=== PATIENT | male | born 1970 | race Two or more races ===

== ENCOUNTER → 2016-12-01 | Day surgery (SDC) | payer BC ==
[~2016-12-01] MED LIST: PROPOFOL 500 MG/50 ML BTL IV ONE; SUCR1S PO; VITA100T65 PO
--- NOTE | 2016-12-01 11:52 | GIPROC ---
[facility] [address] [facility], [address] COLONOSCOPY PROCEDURE REPORT EXAM DATE: 12/01/2016 PATIENT NAME: John Wynne MR #: [id number] BIRTHDATE: 1970 ENDOSCOPIST: Corby Nixon MD ORDER #: [id number] LEATHER CUTTER: Hieu Gaines RN STATUS: outpatient INDICATIONS: The patient is a 46 yr old male here for a colonoscopy due to abdominal pain and hematochezia PROCEDURE PERFORMED: Colonoscopy with polypectomy MEDICATIONS: None and Per Anesthesia. PREP QUALITY: good ESTIMATED BLOOD LOSS: None CONSENT: The patient understands the risks and benefits of the procedure and understands that these risks include, but are not limited to: sedation, allergic reaction, infection, perforation and/or bleeding. Alternative means of evaluation and treatment include, among others: physical exam, x-rays, and/or surgical intervention. The patient elects to proceed with this endoscopic procedure. medical equipment was checked for proper function. Hand hygiene and appropriate measures for infection prevention was taken. After the risks, benefits and alternatives of the procedure were thoroughly explained, Informed consent was verified, confirmed and timeout was successfully executed by the treatment team. A digital exam revealed no abnormalities of the rectum The EC-3490Li ([id number]) endoscope was introduced through the anus and advanced to the cecum, which was identified by both the appendix and ileocecal valve. The instrument was then slowly withdrawn as the colon was fully examined. COLON FINDINGS: Two medium sized large polypoid shaped sessile polyps were found at the cecum and in the rectum. A polypectomy was performed with a cold snare and using snare cautery. The resection was complete and the polyp tissue was completely retrieved. The colon mucosa was otherwise normal. Retroflexed views revealed no abnormalities The scope was then completely withdrawn from the patient and the procedure terminated. PROCEDURE WITHDRAWAL TIME:8.5minutes ADVERSE EVENTS: There were no complications. IMPRESSIONS: 1. Two medium sized large sessile polyps were found at the cecum and in the rectum; polypectomy was performed with a cold snare and using snare cautery 2. The colon mucosa was otherwise normal 3. Retroflexed views revealed no abnormalities 4. Revealed no abnormalities of the rectum RECOMMENDATIONS: 1. Await biopsy results. Biopsy results will not be ready for 7-10 days. If you don't hear from us in two weeks, call our office for results. 2. Yearly hemoccult 3. High fiber diet 4. Follow-up: GI Clinic 4 week(s) RECALL: Return 5 years Colonoscopy Corby Nixon MD eSigned: Corby Nixon MD 12/01/2016 11:51 AM cc: Adam Lam M.D and Alicia Valencia [facility] Adrienne
--- NOTE | 2016-12-01 11:55 | GIPROC ---
[facility] [address] [facility], [address] EGD PROCEDURE REPORT EXAM DATE: 12/01/2016 PATIENT NAME: John Wynne MR #: [id number] BIRTHDATE: 1970 ATTENDING: Corby Nixon MD ORDER #: [id number] GAUGER CHIEF: Hieu Gaines RN STATUS: outpatient INDICATIONS: The patient is a 46 yr old male here for an EGD due to epigastric abdominal pain PROCEDURE PERFORMED: EGD w/ biopsy MEDICATIONS: None, Per Anesthesia, None, and Per Anesthesia. TOPICAL ANESTHETIC: CONSENT: The patient understands the risks and benefits of the procedure and understands that these risks include, but are not limited to: sedation, allergic reaction, infection, perforation and/or bleeding. Alternative means of evaluation and treatment include, among others: physical exam, x-rays, and/or surgical intervention. The patient elects to proceed with this endoscopic procedure. medical equipment was checked for proper function. Hand hygiene and appropriate measures for infection prevention was taken. After the risks, benefits and alternatives of the procedure were thoroughly explained, Informed consent was verified, confirmed and timeout was successfully executed by the treatment team. The patient was anesthetized with topical anesthesia and the EC-3890Li ([id number]) and EC-3490Li ([id number]) endoscope was introduced through the mouth and advanced to the second portion of the duodenum. Retroflexed views revealed no abnormalities The gastroscope was then slowly withdrawn and removed. STOMACH: A gastric bypass was found. A medium sized non-bleeding, round, shallow and clean-based ulcer was found at the gastro-jejunal anastamosis. Biopsies were taken at edge of the ulcer and at the center of the ulcer. The endoscopy was otherwise normal. ADVERSE EVENTS: There were no complications. IMPRESSIONS: 1. Gastric bypass was found 2. Medium sized ulcer was found at the gastro-jejunal anastamosis; biopsies were taken 3. Normal endoscopy otherwise 4. Retroflexed views revealed no abnormalities RECOMMENDATIONS: 1. Await biopsy results. Biopsy results will not be ready for 7-10 days. If you don't hear from us in two weeks, call our office for biopsy results. 2. Follow-up: GI clinic 4 week(s) 3. Carafate 1 gm po qid ac 4. Protonix 40mg BID PATIENT CONDITION: stable DISPOSITION: Home REPEAT EXAM: Return 2 months EGD Corby Nixon MD eSigned: Corby Nixon MD 12/01/2016 11:55 AM cc: [facility] PATIENT NAME: Wynne John Jerry MR#: [id number]
== END | disposition home or self-care (01) ==
LOC: ESDC 09:56
PROVIDERS: ATTEND Internal Medicine Gastroenterology
DX: R10.13 Epigastric pain (principal); K92.1 Melena; D12.0 Benign neoplasm of cecum; K62.1 Rectal polyp; K28.9 Gastrojejunal ulcer, unspecified as acute or chronic, without hemorrhage or perforation
CPT/HCPCS: 00740; 00810; 43239; 45385; 88305; J3010